=== PATIENT | female | born 1980 | race Caucasian/White ===

== ENCOUNTER 2022-08-09 13:43 | Outpatient (CLI) | payer BC | END 2022-08-09 13:44 | disposition home or self-care (01) | LOC: BICMAMMO 13:43 | PROVIDERS: ATTEND Physician Assistant | DX: Z12.31 Encounter for screening mammogram for malignant neoplasm of breast (principal); N64.89 Other specified disorders of breast | CPT/HCPCS: 77063; 77067 ==

== ENCOUNTER 2023-12-02 13:44 | Observation (INO) | payer BC ==
[~2023-12-02 13:44] MED LIST: Iopamidol-370 76% 500 ML MDV (1 ML CHARGE) ONE
[2023-12-02 14:57] LABS: #Basophils 0.04 10x3/uL (0.0-0.2); %Basophils 0.4 % (0.0-1.0); %Eosinophils 4.9 % (0.0-10.0); %Monocytes 6.5 % (0.0-10.0); %Neutrophils 69.8 % (42.0-75.0); Hematocrit 43.3 % (36.0-47.0); Hemoglobin 14.4 g/dL (12.0-16.0); Mean Corpuscular HGB CONC 33.3 g/dL (32.0-36.0); Mean Corpuscular Hemoglobin 29.2 pg (27.0-31.0); Mean Corpuscular Volume 87.8 fL (78.0-98.0); Mean Platelet Volume 10.8 fL (7.4-10.4); Platelet Count 324 10x3/uL (130-400); Red Blood Cell (RBC) Count 4.93 mill/uL (4.20-5.40)
[2023-12-02 15:22] LABS: ALT (SGPT) 29 U/L (8-55); AST (SGOT) 23 U/L (5-34); Albumin 3.7 g/dL (3.5-5.0); Alkaline Phosphatase 97 U/L (40-110); Anion Gap 13 mmol/L (10-20); BUN (Urea Nitrogen) 8 mg/dL (7.0-18.7); Bilirubin, Total 0.3 mg/dL (0.2-1.2); Calc. Creatinine Clearance 0 mL/min (70-130); Calcium 9.4 mg/dL (7.8-10.44); Carbon Dioxide 26 mmol/L (22-29); Estimated GFR 95; Globulin 3.7 g/dL (2.4-3.5); Glucose 99 mg/dL (70-105); Lipase 23 U/L (8-78); Potassium 3.7 mmol/L (3.5-5.1); Protein, Total 7.4 g/dL (6.0-8.3)
[2023-12-02 15:26] LABS: Troponin I 0.013 ng/mL (< 0.028)
[2023-12-02] MEDS ORDERED: Aspirin Chewable 81 MG TAB ONE (15:40)
[2023-12-02 16:21] LABS: Chloride 106 mmol/L (98-107); Sodium 141 mmol/L (136-145)
[2023-12-02] MEDS ORDERED: Nitroglycerin 0.4 MG TAB 1 EACH ONE (17:27)
[2023-12-02 17:57] LABS: BHCG - Serum Negative (NEGATIVE); Pregs Control Background? CLEAR/WHITE (CLR/WHITE); Pregs Control Bar Appear? YES (CONTROL BAR)
[2023-12-02] MEDS ORDERED: Nitroglycerin 0.4 MG TAB (25 Tab Bottle) SL PRN (21:06)
[2023-12-02] MEDS: Enoxaparin 40 MG (0.4 mL) SYRINGE SC SCH (22:01)
[2023-12-02] MEDS: Pantoprazole DR 40 MG TAB PO SCH (22:01)
[2023-12-02 22:08] VITALS: BMI 36.1
[2023-12-02 22:34] LABS: Hemoglobin A1c 5.7 % (4.0-6.0)
[2023-12-02 22:39] LABS: Troponin I 0.016 ng/mL (< 0.028)
[2023-12-02 23:52] LABS: Troponin I 0.021 ng/mL (< 0.028)
[2023-12-03 06:25] LABS: #Basophils 0.05 10x3/uL (0.0-0.2); %Basophils 0.5 % (0.0-1.0); %Eosinophils 5.4 % (0.0-10.0); %Monocytes 8.3 % (0.0-10.0); %Neutrophils 57.5 % (42.0-75.0); Hematocrit 43.4 % (36.0-47.0); Hemoglobin 14.2 g/dL (12.0-16.0); Mean Corpuscular HGB CONC 32.7 g/dL (32.0-36.0); Mean Corpuscular Hemoglobin 29.2 pg (27.0-31.0); Mean Corpuscular Volume 89.1 fL (78.0-98.0); Mean Platelet Volume 11.6 fL (7.4-10.4); Platelet Count 326 10x3/uL (130-400); RBC Distribution Width 14.1 % (11.5-14.5); Red Blood Cell (RBC) Count 4.87 mill/uL (4.20-5.40)
[2023-12-03 08:13] LABS: Chloride 106 mmol/L (98-107); Potassium 3.9 mmol/L (3.5-5.1); Sodium 143 mmol/L (136-145)
[2023-12-03 08:14] LABS: Calcium 9.1 mg/dL (7.8-10.44); Glucose 103 mg/dL (70-105)
[2023-12-03 08:16] LABS: Anion Gap 17 mmol/L (10-20); Carbon Dioxide 24 mmol/L (22-29)
[2023-12-03 08:18] LABS: BUN (Urea Nitrogen) 13 mg/dL (7.0-18.7); Calc. Creatinine Clearance 122 mL/min (70-130); Estimated GFR 85
[2023-12-03 08:43] LABS: Triglycerides 273 mg/dL (Less than 150)
[2023-12-03 08:48] LABS: Cardiac Risk 4.1 (Less than 4.5); Cholesterol 161 mg/dl (< 200 Desired); HDL Cholesterol 39 mg/dL (>60 Neg Risk); LDL Cholesterol, Calculated 67 mg/dL
[2023-12-03] MEDS ORDERED: Regadenoson 0.4 MG/5 ML SYRINGE ONE (09:37)
[2023-12-03] MEDS: Pantoprazole DR 40 MG TAB PO SCH (11:35)
[2023-12-03] MEDS: Aspirin Chewable 81 MG TAB PO SCH (11:35)
[2023-12-03] MEDS: Amlodipine 10 MG TAB PO SCH (13:15)
[2023-12-03] MEDS: Enoxaparin 40 MG (0.4 mL) SYRINGE SC SCH (20:39)
[2023-12-04 05:51] LABS: Anion Gap 12 mmol/L (10-20); BUN (Urea Nitrogen) 11 mg/dL (7.0-18.7); Calc. Creatinine Clearance 134 mL/min (70-130); Calcium 8.7 mg/dL (7.8-10.44); Carbon Dioxide 24 mmol/L (22-29); Chloride 106 mmol/L (98-107); Estimated GFR 95; Glucose 110 mg/dL (70-105); Potassium 3.4 mmol/L (3.5-5.1); Sodium 139 mmol/L (136-145)
[2023-12-04] MEDS ORDERED: Amlodipine 10 MG TAB PO SCH (09:00)
[2023-12-04] MEDS ORDERED: Non-Formulary Item 1 EACH (Fluoxetine Hcl [Fluoxetine Hcl] 40 MG Capsule) PO SCH (09:00)
[2023-12-04] MEDS: FLUoxetine HCl 20 MG CAP PO SCH (10:39)
[2023-12-04] MEDS: Atorvastatin Calcium 20 MG TAB PO SCH (10:40)
[2023-12-04] MEDS: Potassium Chloride 20 MEQ TAB PO SCH (10:40)
[2023-12-04] MEDS: NIFEdipine XL 60 MG ER.TAB PO SCH (10:40)
[2023-12-04 13:25] VITALS: BP 136/76; TEMP 98.1
== END 2023-12-04 14:06 | disposition home or self-care (01) ==
LOC: ERS 13:44 → 2SE 20:16
PROVIDERS: ADMIT Student in an Organized Health Care Education/Training Program; ATTEND Internal Medicine
PROC: B246ZZZ Ultrasonography of Right and Left Heart (ICD-10-PCS; principal; 2023-12-03)
DX: R07.89 Other chest pain (principal); I08.8 Other rheumatic multiple valve diseases; I42.9 Cardiomyopathy, unspecified; I10 Essential (primary) hypertension; E78.5 Hyperlipidemia, unspecified; E66.9 Obesity, unspecified; Z68.36 Body mass index [BMI] 36.0-36.9, adult; F17.210 Nicotine dependence, cigarettes, uncomplicated; Z88.8 Allergy status to other drugs, medicaments and biological substances; Z79.82 Long term (current) use of aspirin; Z79.899 Other long term (current) drug therapy
CPT/HCPCS: 36415; 71045; 71275; 78452; 80048; 80053; 80061; 83036; 83690; 83880; 84484; 84703; 85025; 93005; 93017; 93306; 94760; 96372; A9502; G0378; J1650; J2785; Q9967